=== PATIENT | male | born 1980 | race Caucasian/White ===

== ENCOUNTER 2025-01-18 16:44 | Emergency (ER) | payer SELFPAY ==
[2025-01-18 17:55] LABS: Absolute Eosinophils 0.1 K/uL (0-0.5); Absolute Lymphocytes (CBC) 0.9 K/uL (0.7-4.9); Absolute Monocytes 0.6 K/uL (0.1-1.3); Absolute Neutrophil 10.5 K/uL (1.8-8.0); Basophils % 0.4 % (0-1.3); Eosinophils % 0.7 % (0-4.4); Hematocrit 54.1 % (39.6-49.0); Hemoglobin 18.3 g/dL (13.6-17.9); Lymphocytes % 7.7 % (15.3-44.8); MCH 31.7 pg (27.0-35.0); MCHC 33.8 g/dL (32.0-36.0); MCV 93.6 fL (80-100); MPV 8.4 fL (7.6-11.3); Monocytes % 4.9 % (3.3-12.3); Neutrophils % 86.3 % (41.7-73.7); Nucleated Red Blood Cells % 0.1 % (0-0); Platelets 176 thou/uL (152-406); RBC Red Blood Cell Count 5.78 M/uL (4.33-5.43); Red Cell Distribution Width 14.3 % (12.1-15.2)
[2025-01-18] MEDS ORDERED: FAMOTIDINE 20 MG/2 ML VIAL IV ONE (17:57)
[2025-01-18] MEDS ORDERED: DIPHENHYDRAMINE 50 MG/ML VIAL ONE (17:57)
[2025-01-18] MEDS ORDERED: predniSONE 20 MG TAB ONE (17:57)
--- NOTE | 2025-01-18 18:08 | EDPHYS ---
Physician Documentation [facility] Name: Tariq Parkinson Age: 44 yrs Sex: Male : 1980 Arrival Date: 01/18/2025 Time: 16:44 Bed 12 Private MD: ED Physician Donnie Buckley HPI: 01/18 17:57 This 44 yrs old Male presents to ER via EMS with complaints of allergic to franny shrimp reaction. 17:57 The patient presents with difficulty swallowing, nasal itching, rash, redness of skin, franny runny nose. Onset: The symptoms/episode began/occurred just prior to arrival, 3 hour(s) ago. Associated signs and symptoms: Pertinent positives: hives, rash. Possible causes: shellfish. At home the patient or guardian has treated the symptoms with Benadryl. Severity of symptoms: At their worst the symptoms were moderate in the emergency department the symptoms are unchanged. The patient has not experienced similar symptoms in the past. Historical: - Allergies: 17:06 No Known Allergies; jb4 - Home Meds: 17:06 Propranolol Oral [Active]; amlodipine oral [Active]; jb4 - PMHx: 17:06 HTN; jb4 - PSHx: 17:06 None; jb4 - Immunization history:: Adult Immunizations. - Infectious Disease History:: Denies. - Social history:: Smoking status: Patient denies any tobacco usage or history of. ROS: 17:59 Constitutional: Negative for fever, chills, and weight loss, Eyes: Negative for injury, franny pain, redness, and discharge, ENT: Negative for injury, pain, and discharge, Neck: Negative for injury, pain, and swelling, Cardiovascular: Negative for chest pain, palpitations, and edema, Respiratory: Negative for shortness of breath, cough, wheezing, and pleuritic chest pain, Abdomen/GI: Negative for abdominal pain, nausea, vomiting, diarrhea, and constipation, Back: Negative for injury and pain, : Negative for injury, bleeding, discharge, and swelling, MS/Extremity: Negative for injury and deformity, Neuro: Negative for headache, weakness, numbness, tingling, and seizure, Psych: Negative for depression, anxiety, suicide ideation, homicidal ideation, and hallucinations, Endocrine: Negative for neck swelling, polydipsia, polyuria, polyphagia, and marked weight changes, Hematologic/Lymphatic: Negative for swollen nodes, abnormal bleeding, and unusual bruising, 17:59 Skin: Positive for rash, swelling, 17:59 Allergy/Immunology: Positive for hives, diffusely, rash, diffusely, Exam: 17:59 Constitutional: This is a well developed, well nourished patient who is awake, alert, franny and in no acute distress. Head/Face: Normocephalic, atraumatic. Eyes: Pupils equal round and reactive to light, extra-ocular motions intact. Lids and lashes normal. Conjunctiva and sclera are non-icteric and not injected. Cornea within normal limits. Periorbital areas with no swelling, redness, or edema. ENT: Nares patent. No nasal discharge, no septal abnormalities noted. Tympanic membranes are normal and external auditory canals are clear. Oropharynx with no redness, swelling, or masses, exudates, or evidence of obstruction, uvula midline. Mucous membranes moist. Neck: Trachea midline, no thyromegaly or masses palpated, and no cervical lymphadenopathy. Supple, full range of motion without nuchal rigidity, or vertebral point tenderness. No Meningismus. Chest/axilla: Normal chest wall appearance and motion. Nontender with no deformity. No lesions are appreciated. Cardiovascular: Regular rate and rhythm with a normal S1 and S2. No gallops, murmurs, or rubs. Normal PMI, no JVD. No pulse deficits. Respiratory: Lungs have equal breath sounds bilaterally, clear to auscultation and percussion. No rales, rhonchi or wheezes noted. No increased work of breathing, no retractions or nasal flaring. Abdomen/GI: Soft, non-tender, with normal bowel sounds. No distension or tympany. No guarding or rebound. No evidence of tenderness throughout. Back: No spinal tenderness. No costovertebral tenderness. Full range of motion. Male : Normal genitalia with no discharge or lesions. MS/ Extremity: Pulses equal, no cyanosis. Neurovascular intact. Full, normal range of motion., bilateral aka Neuro: Awake and alert, GCS 15, oriented to person, place, time, and situation. Cranial nerves II-XII grossly intact. Motor strength 5/5 in all extremities. Sensory grossly intact. Cerebellar exam normal. Normal gait. Psych: Awake, alert, with orientation to person, place and time. Behavior, mood, and affect are within normal limits. 17:59 Skin: Appearance: Color: erythematous, Temperature: normal temperature, Moisture: normal moisture, petechiae, not noted, ecchymosis, not noted, 17:59 Skin: Appearance: Vital Signs: 17:01 BP 150 / 104; Pulse 75; Resp 16; Temp 97.9; Pulse Ox 100% on R/A; Weight 99.79 kg; jb4 Height 6 ft. 4 in. ; Pain 0/10; 18:30 BP 185 / 115; Pulse 85; Resp 16; Pulse Ox 99% on R/A; jb4 17:01 Body Mass Index 26.78 (99.79 kg, 193.04 cm) jb4 17:01 Pain Scale: Adult jb4 MDM: 16:59 Medical Screening Exam initiated franny 18:02 Differential diagnosis: anaphylaxis, angioedema, bronchospasm, Mastocystosis Status franny Asthmaticus urticaria, Vasovagal Reactions. Data reviewed: vital signs, nurses notes, lab test result(s), CBC, electrolytes, hepatic panel. Consideration of Admission/Observation Escalation of care including admission/observation considered. I considered the following discharge prescriptions or medication management in the emergency department Medications were administered in the Emergency Department. See MAR. Test considered but Not performed: EKG: no ekg. Historians other than the Patient: EMS: ems well informed. Family Member: sister well informed. Care significantly affected by the following chronic conditions: Hypertension. Counseling: I had a detailed discussion with the patient and/or guardian regarding the historical points, exam findings, and any diagnostic results supporting the discharge/admit diagnosis, the presence of at least one elevated blood pressure reading (>120/80) during this emergency department visit, lab results, the need for outpatient follow up, for definitive care, a family practitioner. 03 17:00 Order name: CBC with Diff [facility] 01/18 17:00 Order name: Comprehensive Metabolic Panel franny Administered Medications: 17:00 Drug: NS 0.9% IV 1000 ml IV at 1000 ml once; to be given as a bolus over 60 minutes jb4 {Note: finished EMS bolus.} Route: IV; Rate: 1000 ml; Site: left forearm; 18:04 Drug: Famotidine IVP 40 mg IVP once; dilute with 10 mL 0.9% NaCl; give over 2 minutes jb4 Route: IVP; Site: left forearm; 18:05 Drug: diphenhydrAMINE IVP 25 mg IVP once Route: IVP; Site: left forearm; jb4 18:05 Drug: predniSONE PO 60 mg PO once Route: PO; jb4 Disposition Summary: 01/18/25 18:07 Discharge Ordered Notes: Location: Home franny Problem: new franny Symptoms: have improved franny Condition: Stable franny Diagnosis - Angioneurotic edema franny - Urticaria, unspecified franny - Allergy to seafood franny Followup: franny - With: Private Physician - When: 2 - 3 days - Reason: Recheck today's complaints, Continuance of care, Re-evaluation by your physician Followup: franny - With: Huber Whitehead MD - When: 2 - 3 days - Reason: Recheck today's complaints, Re-evaluation by your physician Discharge Instructions: - Discharge Summary Sheet [facility] - How to Use an Auto-Injector Pen franny - Hives franny - Rash, Adult franny - Angioedema franny - Rash, Adult, [id number] franny - Angioedema, [id number] franny - Hives, [id number] franny - Food Choices for Other Food Allergens [facility] Forms: - Medication Reconciliation Form franny - Antibiotic Education franny - Prescription Opioid Use franny - Patient Portal Instructions [facility] - Leadership Thank You Letter [facility] Prescriptions: - EpiPen 0.3 mg/0.3 mL Injection Auto-Injector - administer 0.3 milliliter INTRAMUSCULAR route once as a single dose; 2 unit; [facility] Refills: 0, Product Selection Permitted - Benadryl 25 mg Oral capsule - take 2 capsule ORAL route every 6 hours As needed; 40 tablet; Refills: 0, [facility] Product Selection Permitted - Pepcid 20 mg Oral tablet - take 1 tablet ORAL route every 12 hours for 21 days; 42 tablet; Refills: 0, [facility] Product Selection Permitted - Prednisone 20 mg Oral Tablet - take 2 tablets ORAL route once daily for 5 days; 10 tablet; Refills: 0, Product [facility] Selection Permitted Signatures: Dispatcher [employer] Donnie José MD MD cha Bryson, James, RN RN jb4
--- NOTE | 2025-01-18 18:08 | ER ---
Nurse's Notes [facility] Name: Tariq Parkinson Age: 44 yrs Sex: Male : 1980 Arrival Date: 01/18/2025 Time: 16:44 Bed 12 Private MD: Diagnosis: Angioneurotic edema;Urticaria, unspecified;Allergy to seafood Presentation: 01/18 17:01 Chief complaint: EMS states: Pt was on his way home and started having an allergic jb4 reaction to an unknown allergen. At the time he was reporting N/V and some chest pain. Pt took 25mg of benadryl IV [employer]MENT TRADER of EMS, 25mg of benadryl IV by EMS, 125 of solumedrol, and 4mg of zofran IV. Symptoms have resolved, no longer SOB, Nauseous, or having pain. Face is no longer swollen. Coronavirus screen: At this time, the client does not indicate any symptoms associated with coronavirus-19. Ebola Screen: No symptoms or risks identified at this time. Initial Sepsis Screen: Does the patient meet any 2 criteria? No. Patient's initial sepsis screen is negative. Does the patient have a suspected source of infection? No. Patient's initial sepsis screen is negative. Risk Assessment: Do you want to hurt yourself or someone else? Patient reports no desire to harm self or others. Onset of symptoms was January 18, 2025. Transition of care: patient was not received from another setting of care. 17:01 Method Of Arrival: EMS: [facility] jb4 17:01 Acuity: LORA 3 jb4 Historical: - Allergies: 17:06 No Known Allergies; jb4 - Home Meds: 17:06 Propranolol Oral [Active]; amlodipine oral [Active]; jb4 - PMHx: 17:06 HTN; jb4 - PSHx: 17:06 None; jb4 - Immunization history:: Adult Immunizations. - Infectious Disease History:: Denies. - Social history:: Smoking status: Patient denies any tobacco usage or history of. Screenin:30 [facility] ED Fall Risk Assessment (Adult) History of falling in the last 3 months, jb4 including since admission No falls in past 3 months (0 pts) Confusion or Disorientation No (0 pts) Intoxicated or Sedated No (0 pts) Impaired Gait No (0 pts) Mobility Assist Device Used No (0 pt) Altered Elimination No (0 pt) Score/Fall Risk Level 0 - 2 = Low Risk Oriented to surroundings, Maintained a safe environment. Abuse screen: Denies threats or abuse. Nutritional screening: No deficits noted. Tuberculosis screening: No symptoms or risk factors identified. Assessment: 17:15 General: Appears in no apparent distress. comfortable, Behavior is calm, cooperative, jb4 appropriate for age. Pain: Denies pain. Neuro: Level of Consciousness is awake, alert, obeys commands, Oriented to person, place, time, situation. Cardiovascular: Patient's skin is warm and dry. Respiratory: Airway is patent Respiratory effort is even, unlabored, Respiratory pattern is regular, symmetrical. Derm: Skin is intact, Skin is pink, warm \T\ dry. Musculoskeletal: Circulation, motion, and sensation intact. Range of motion: intact in all extremities. 18:30 Reassessment: Patient appears in no apparent distress at this time. Patient and/or jb4 family updated on plan of care and expected duration. Pain level reassessed. Patient is alert, oriented x 3, equal unlabored respirations, skin warm/dry/pink. Vital Signs: 17:01 BP 150 / 104; Pulse 75; Resp 16; Temp 97.9; Pulse Ox 100% on R/A; Weight 99.79 kg; jb4 Height 6 ft. 4 in. ; Pain 0/10; 18:30 BP 185 / 115; Pulse 85; Resp 16; Pulse Ox 99% on R/A; jb4 17:01 Body Mass Index 26.78 (99.79 kg, 193.04 cm) jb4 17:01 Pain Scale: Adult [facility] ED Course: 16:58 Patient arrived in ED. jb4 16:59 Gerardo Brown, KRISTIN is Primary Nurse. jb4 16:59 Donnie Buckley MD is Attending Physician. [facility] 17:06 Triage completed. jb4 17:11 Arm band placed on right wrist. jb4 17:53 Comprehensive Metabolic Panel Sent. jb4 17:53 CBC with Diff Sent. jb4 18:06 Huber Whitehead MD is Referral Physician. [facility] 18:30 Patient has correct armband on for positive identification. Bed in low position. Call [facility] light in reach. Side rails up X 1. Provided Education on: discharge instructions.. 18:30 No provider procedures requiring assistance completed. IV discontinued, intact, jb4 bleeding controlled, No redness/swelling at site. Pressure dressing applied. Administered Medications: 17:00 Drug: NS 0.9% IV 1000 ml IV at 1000 ml once; to be given as a bolus over 60 minutes jb4 {Note: finished EMS bolus.} Route: IV; Rate: 1000 ml; Site: left forearm; 18:04 Drug: Famotidine IVP 40 mg IVP once; dilute with 10 mL 0.9% NaCl; give over 2 minutes jb4 Route: IVP; Site: left forearm; 18:05 Drug: diphenhydrAMINE IVP 25 mg IVP once Route: IVP; Site: left forearm; jb4 18:05 Drug: predniSONE PO 60 mg PO once Route: PO; jb4 Medication: 18:30 VIS not applicable for this client. jb4 Outcome: 18:07 Discharge ordered by . franny 18:29 Patient left the ED. jb4 18:30 Discharged to home ambulatory, jb4 18:30 Condition: stable 18:30 Discharge instructions given to patient, Instructed on discharge instructions, follow up and referral plans. medication usage, Demonstrated understanding of instructions, follow-up care, medications, Prescriptions given X 4, Signatures: Donnie Buckley MD MD cha Bryson, James, RN RN jb4
[2025-01-18 18:14] LABS: Albumin 3.6 g/dL (3.4-5.0); Anion Gap 7.8 mEq/L (5.0-15.0); Bilirubin Total 0.5 mg/dL (0.2-1.0); Globulin 3.6 g/dL (2.3-3.5); Potassium 4.8 mEq/L (3.5-5.1); Protein, Total 7.2 g/dL (6.4-8.2)
[2025-01-18 18:39] VITALS: BP 150/104; TEMP 97.9; O2SAT 100
== END 2025-01-18 18:29 | disposition home or self-care (01) ==
LOC: ER 16:44 → EDBD 16:44 → ER 18:29
DX: T78.3XXA Angioneurotic edema, initial encounter (principal); L50.9 Urticaria, unspecified; Z91.013 Allergy to seafood
CPT/HCPCS: 36415; 80053; 85025; J1200; J7512